=== PATIENT | female | born 1975 | race Caucasian/White ===

== ENCOUNTER → 2023-12-13 16:37 | Outpatient (REF) | payer OTHER, SELFPAY | LOC: HWWDC 16:37 | PROVIDERS: ATTENDING PHYSICIAN Physician Assistant | DX: Z12.31 Encounter for screening mammogram for malignant neoplasm of breast (principal) | CPT/HCPCS: 77063; 77067 ==

== ENCOUNTER 2024-01-05 13:44 | Emergency (ER) | payer OTHER, SELFPAY ==
[2024-01-05 13:56] VITALS: BP 126/94
[2024-01-05 15:00] VITALS: BMI 26.6
--- NOTE | 2024-01-05 15:40 | ED.GENMED ---
History of Present Illness
General
Chief Complaint: Head Injury
Source: patient
Exam Limitations: none
Time Seen by Provider: 01/05/24 15:06
Nursing documentation reviewed up to this point in time: agreed with
Travel History
Have you had any contact with someone who has COVID-19?: No
Do you have any symptoms of coronavirus? Fever > 100 degrees, chills, cough, shortness of breath, sore throat, loss of taste or smell, muscle aches, or headache?: No
History of Present Illness
History of Present Illness:
48-year-old female presents to the ER for evaluation of scalp laceration/head injury . Patient reports he was using a garden tiller in the garden tiller got away from her causing her to fall she fell forward hitting her head on the handle of the
garden tiller. She denies loss of consciousness. She denies any headache nausea vomiting she complains of laceration to her forehead. Last tetanus is over 10 years.
Past History
Past History
ED Past Medical History: Other (dermatomyositis, migraines)
ED Past Surgical History: and Gynecological
Social History
Personal:
Living: with family
Employment: Not employed
Review of Systems
Review of Systems
Allergies reviewed?: Yes
All Other Systems: ROS reviewed and negative except as documented in HPI and ROS
Constitutional: Reports no symptoms
ABD/GI: Reports no symptoms; Denies nausea or vomiting
Musculoskeletal: Reports no symptoms
Skin: Reports other (+ laceration to forehead )
Neurological: Denies headache ( no LOC )
Psychiatric: Reports no symptoms
Phy Exam
General Physical Exam
General Presentation: no apparent distress
General age: appears stated age
General Skin: warm and dry
General Habitus: normal
General Mental: alert
General Hydration: appears well hydrated
Neurological Exam
Neurological Exam: alert and oriented x3
Samreen Coma Scale
Eye Opening: Spontaneous
Verbal Response: Oriented
Motor Response: Obeys Commands
GCS Total Score: 15
Musculoskeletal Exam
Musculoskeletal Exam: full ROM
Skin Exam
Skin Exam: normal color, warm/dry and other (1.5 cm linear vertical laceration thru to subcutaneous tissue only )
Psychiatric Exam
Psychiatric Exam: normal mood/affect
Course
Orders/Labs/Results
Orders:
Orders
01/05/24 15:42
Tetanus/Diphth/Acelpertussis [Adacel] 0.5 ml IM .ONCE ONE
Vital Signs
Initial and Last Documented VS:
Initial Vital Signs
Temp Pulse Resp BP Pulse Ox
99.3 F 93 20 126/94 98
01/05/24 13:56 01/05/24 13:56 01/05/24 13:56 01/05/24 13:56 01/05/24 13:56
Last Documented Vital Signs
Temp Pulse Resp BP Pulse Ox
99.3 F 93 20 126/94 98
01/05/24 13:56 01/05/24 13:56 01/05/24 13:56 01/05/24 13:56 01/05/24 13:56
Procedures
Laceration Closure
Forehead:
Status of Wound: clean
Size of Wound in cm: 1.5
Description of Wound Edges: sharp
Preparation: cleaned with saline
Anesthesia: 1% Lidocaine with epi
Revision/Debridement: routine- no revision
Skin Closure Material: 6-0 nylon
Number of sutures: 6
MDM/Problems Addressed
Differential Diagnosis Includes:
not limited to : laceration, head injury
MDM/Problems Addressed:
Patient is a 48-year-old female who fell forward hitting her head on a garden tiller sustaining laceration to forehead. She reports she had mild headache but headache is resolved now no nausea vomiting no other neurological symptoms. She is awake
alert no acute distress with a normal neurologic exam. Wound repaired as documented. Wound is a simple laceration vertically situated on forehead. Tetanus was updated. Wound care reviewed
*Critical Care Note
Total Time (30-74mins, 75-104mins- exclusive of procedures): Not Applicable
ED Attending Note
-
Portions of this chart may have been created with voice recognition software.� Occasional wrong word or��sound alike� substitutions may have occurred due to the inherent limitations of voice recognition software.
Discharge Plan
Departure
Patient Disposition: Home (Routine Discharge)
Date of Disposition: 01/05/24
Time of Disposition: 15:49
Patient with high blood pressure during this ER visit?: Yes
Covid-19: Not Applicable
Discharge Problem:
Head injury, Facial laceration
Instructions: Head Injury in Adults (DC), Laceration Repair With Stitches (DC), BLOOD PRESSURE
Prescriptions:
No Action
hydroxychloroquine 200 MG tablet
400 mg PO DAILY
azathioprine 50 mg Tablet
50 mg PO BID
paroxetine HCl [Paxil CR] 25 mg Tablet Extended Release 24 Hr
50 mg PO DAILY
acetaminophen [Tylenol] 325 mg Tablet
650 mg PO Q4HPRN PRN (Reason: mild pain)
sumatriptan succinate 100 mg Tablet
100 mg PO DAILYPRN PRN (Reason: migraines)
ondansetron HCl 4 mg Tablet
4 mg PO Q4HPRN PRN (Reason: nausea)
prednisone 5 mg Tablet
5 mg PO DAILY
Patient Comments:
07/26/23 patient is taking a total of 6 mg. She is currently taking 5mg along with (2) 1 mg.
prednisone 1 mg Tablet
1 mg PO DAILY
Patient Comments:
07/26/23 patient is taking a total of 6 mg; she is currently taking 5 mg along with (2) 1 mg.
ibuprofen 200 mg Tablet
600 mg PO Q6HPRN PRN (Reason: nild pain)
gabapentin 300 mg Capsule
300 mg PO DAILY
valacyclovir
1 100 ml PO TID
oxycodone 5 mg tablet
5 - 10 mg PO Q4HPRN PRN (Reason: moderate to severe pain) Qty: 14 0RF
Referrals:
Patricia Argueta MD [Family Provider] -
Activity Restrictions/Additional Instructions:
Keep wound clean and dry for 24 hours after 24 hours wash with soap and water twice a day apply small layer of antibiotic into the area. Do wound care twice a day. See family doctor as needed in the next days for wound check and sutures
removed in 5 days. Return if any worsening of symptoms if increased headache nausea vomiting redness red streaking.
Discharge Date and Time
Print Language: TAJIK
[2024-01-05] MEDS: ADACEL 0.5 ML IM (15:47)
== END 2024-01-05 16:09 | disposition home or self-care (01) ==
LOC: EMR 13:44
PROVIDERS: EMERGENCY PHYSICIAN Emergency Medicine; FAMILY PHYSICIAN Family Medicine
DX: S09.90XA Unspecified injury of head, initial encounter (principal); S01.81XA Laceration without foreign body of other part of head, initial encounter; W19.XXXA Unspecified fall, initial encounter
CPT/HCPCS: 99282; 12011; 90715

== ENCOUNTER → 2024-06-05 15:03 | Outpatient (REF) | payer OTHER, SELFPAY | LOC: HWRAD 15:03 | PROVIDERS: ATTENDING PHYSICIAN Physician Assistant | DX: R10.2 Pelvic and perineal pain (principal); N83.201 Unspecified ovarian cyst, right side | CPT/HCPCS: 76856 ==

== ENCOUNTER → 2024-10-31 10:50 | Outpatient (REF) | payer BC, SELFPAY | LOC: RAD 10:50 | PROVIDERS: ATTENDING PHYSICIAN Family Medicine; FAMILY PHYSICIAN Family Medicine | DX: R10.31 Right lower quadrant pain (principal) | CPT/HCPCS: 74178; Q9967 ==

== ENCOUNTER → 2025-04-22 16:40 | Outpatient (REF) | payer BC, SELFPAY | LOC: WDC 16:40 | PROVIDERS: ATTENDING PHYSICIAN Obstetrics & Gynecology Gynecology; FAMILY PHYSICIAN Family Medicine | DX: Z12.31 Encounter for screening mammogram for malignant neoplasm of breast (principal) | CPT/HCPCS: 77063; 77067 ==